=== PATIENT | male | born 1985 | race Caucasian/White ===

== ENCOUNTER 2020-07-31 06:17 | Emergency (ER) | payer OTHER, SELFPAY ==
[2020-07-31 06:20] VITALS: BP 173/98; PULSE 72; RESP 18; TEMP 36.6; O2SAT 99
[2020-07-31] MEDS: PROPARACAINE 0.5% OPHTH SOL 1 DROPS EYE-BOTH (07:17)
[2020-07-31] MEDS: FLUORESCEIN 1 MG STRIP EYE-BOTH (07:17)
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
[2020-07-31 07:56] VITALS: BP 167/93; PULSE 64; RESP 18; O2SAT 99
== END 2020-07-31 07:56 | disposition home or self-care (01) ==
PROVIDERS: Emergency Provider Emergency Medicine
DX: S06.0X0A Concussion without loss of consciousness, initial encounter (principal); H92.02 Otalgia, left ear; R68.89 Other general symptoms and signs; Y99.0 Civilian activity done for income or pay
CPT/HCPCS: 70450; 99283; 99284